=== PATIENT | female | born 1940 | race Caucasian/White ===

== ENCOUNTER 2017-07-13 17:43 | Emergency (ER) | payer MEDICARE, MEDICAID ==
--- OUTSIDE RECORDS SUMMARY | 2017-07-13 18:00 | XMS REPORT ---
:1940 External Reference #:[id number] [facility] Address [address], [address] [place] [address] Phone [phone] Care Team Providers Name Role Phone Leslie Izaguirre, ANDREAS Care Team Information Carpenter Helper Unavailable Frieda Loaiza MD Primary Care Physician Unavailable Payers Type Date Identification Numbers Payment Provider Subscriber Medicare Primary Policy Number: [id number] Medicare Cindy Andrews PayID: [id number] [address] [place] [address] Medicaid Policy Number: [id number] Medicaid Cindy Andrews Group Name: 2 1 [address] PayID: [id number] [place] [address] Problems Date Description Provider Status Onset: 10/22/2013 Chest pain Camilla Issa, Active MSN, ENGINEERING CLERK Onset: 10/22/2013 Dyspnea Camilla Issa, Active MSN, ENGINEERING CLERK Onset: 10/22/2013 Syncope and collapse Camilla Issa, Active MSN, ENGINEERING CLERK Onset: 10/22/2013 Tachycardia Camilla Issa, Active MSN, ENGINEERING CLERK Onset: 10/22/2013 Benign essential hypertension Camilla Issa, Active MSN, ENGINEERING CLERK Onset: 10/22/2013 Hyperlipidemia Camilla Issa, Active MSN, ENGINEERING CLERK Onset: 10/22/2013 Chronic obstructive lung disease Camilla Issa, Active MSN, ENGINEERING CLERK Onset: 10/22/2013 Aneurysm of thoracic aorta Camilla Issa, Active MSN, ENGINEERING CLERK Onset: 10/18/2015 Essential hypertension Camilla Diazraul Issa, Active MSN, ENGINEERING CLERK Onset: 01/31/2016 Closed fracture of head of radius Ramona Holden, ONOFRE Active Onset: 02/10/2016 Closed fracture of distal end of Ramona Holden, ONOFRE Active radius Onset: 12/05/2016 Benign neoplasm of heart Orion Toney M.D., Active FACC Onset: 12/05/2016 Paroxysmal supraventricular Orion Toney M.D., Active tachycardia FACC Onset: 09/28/2014 Hypertensive disorder Active Onset: 09/28/2014 Atrial fibrillation Active Onset: 09/28/2014 Ataxia Active Onset: 09/28/2014 Hypothyroidism Active Family History Date Family Member(s) Problem(s) Comments General Non Contributory Lung cancer in father. Mother in childbirth. Siblings without CAD. Father due to Lung Cancer () Father Lung Cancer Social History Type Date Description Comments Marital Status Lives With Daughter Home Environment Does not have an air conditioner Diet Patient follows no dietary restrictions Occupation Retired Work Status Retired ADL's/IADL's Independent with all ADL's Cigarette Use 2009 Quit ETOH Use Denies alcohol use Smoking Patient is a former smoker quit 2009 Recreational Drug Use Denies Drug Use Daily Caffeine Does Not Consume Caffeine Exercise Type/Frequency Does not exercise Allergies, Adverse Reactions, Alerts Date Description Reaction Status Severity Comments Sulfa Drugs active 09/28/2014 Lexiscan Anaphylaxis active Severe Penicillins active 09/28/2014 Sulfa Antibiotics Hives active 08/02/2010 Cardizem CD active rash 06/28/2010 Regadenoson active severe bronchospasm Medications Medication Date Status Form Strength Qnty SIG Indications Ordering Provider Flecainide 10/24 Active Tablets 50mg 60tab take one s tablet by alessio Toney twice Cristóbal.Matthew, [facility] a day Budesonide 10/09 Active Suspension 0.5mg/2ML 60ml take 1 vial twice MD Tasia daily. rinse mouth after use. Furosemide 04/11 Active Tablets 20mg 90tab 1 by mouth s every day Latoya Toney, FACC Klor-Con M20 10/17 Active Tablets ER 20Meq 60tab 1 by mouth R60.9 Camilla s twice a day Minesh Issa, MSN, ENGINEERING CLERK Azithromycin 08/02 Active Tablets 250mg 12tab take 1 J43.2 s tablet on MD Tasia sunday, sunday, and sunday. Perforomist 03/23 Active Nebulizer 20mcg/2ML 120ml 1 vial J44.9 twice daily MD Tasia Levoxyl Active Tablets 100mcg po qd Unknown Wellbutrin XL Active Tablets ER 300mg 1 po qd Unknown 24HR Klonopin Active Tablets 1mg 1 po tid Unknown Evista Active Tablets 60mg 1 po qd Unknown Singulair Active Tablets 10mg 1 po qd Unknown Aricept Active Tablets 10mg 1 po qd Unknown Paxil Active Tablets 10mg 1 po qd Unknown Primidone Active Tablets 50mg 250 mg tabs Unknown / , plus 3 x 50 mg tabs total of [address] Active Tablets DR 81mg 30tab 1 po qd Unknown / s Tramadol HCL Active Tablets 50mg 1 by mouth Unknown / as needed for pain Prilosec Active Capsules DR 20mg 1 by mouth Unknown /0000 every day Docqlace Active Capsules 100mg take one Unknown capsule by mouth twice a day Spiriva Active Aerosol 2.5mcg/Ac take 1 Unknown Respimat /0000 t puffs once daily. Proair HFA Active Aerosol 108(90Bas [place], /0000 e) Kimmy, mcg/Act M.D. Mirtazapine Active Tablets 15mg 1 tablet by Unknown /0000 mouth at at bedtime Diltiazem HCL Active Caps ER 180mg 90cap 1 by mouth Marlyss B. ER /0000 24HR s every day ONOFRE Tirado Tylenol Active Capsules 325mg 2 tab by Unknown /0000 mouth three times per day as needed Ventolin HFA Active Aerosol 108(90Bas 1-2 puffs Unknown /0000 e) every 6 mcg/Act hours as needed Triamcinolone Active Ointment 0.025% as needed Unknown Acetonide Ondansetron HCL Active Tablets 4mg 1 tab by Unknown /0000 mouth every 8 hours Doxycycline Active Capsules 100mg 1 cap by Unknown Monohydrate /0000 mouth twice a day for 10 days Albuterol Active Nebulizer (2.5mg/3M nebulized Unknown Sulfate / L) 0.083% every 4 hours as needed Metoclopramide Active Tablets 5mg 1 tablet by Unknown HCL /0000 mouth up to twice times a day Rosuvastatin Active Tablets 10mg take 1 by Unknown Calcium / mouth at bedtime Oxycodone HCL 01/30 Hx Tablets 5mg 40tab 1-2 every S52.122A Janes s 4-6 hour as Keisha, - needed pain M.D. 03/15 Furosemide 10/17 Hx Tablets 20mg 30tab 1 by mouth R60.9 Camilla s every day Minesh Issa, 01/30 MSN, [facility] /2015 Levoxyl Hx Tablets 75mcg po qd Unknown / Klor-Con M20 Hx Tablets ER 20Meq 30tab 1 po qd / s Wellbutrin XL Hx Tablets ER 300mg 1 po qd 24HR Perforomist Hx Nebulizer 20mcg/2ML bid Unknown Ipratropium Hx Solution 0.5-2.5(3 q4h prn Unknown Jean/Albuter / )mg/3ML ol Sulfate Aspirin Ec Hx Tablets DR 81mg 1 po qd Unknown / Paxil Hx Tablets 40mg 1 po qd Unknown / Fish Oil Hx Capsules 1000mg po bid Unknown / Multivitamins Hx Tablets 1 po qd Unknown / Vitamin B-12 CR Hx Tablets ER 1000mcg po qd Unknown / Aricept Hx Tablets 10mg 1 po qd Unknown / Primidone Hx Tablets 50mg po qhs Unknown / Vytorin Hx Tablets 10-10mg po qd / Singulair Hx Tablets 10mg 1 po qd Unknown / Evista Hx Tablets 60mg 1 po qd Unknown / Prednisone Hx Tablets 10mg 30tab Take 1 [place] / s tablet once MD Tasia daily Multivitamins Hx Capsules 90cap 1 by mouth Unknown /0000 s every day Theophylline CR Hx Tablets ER 300mg 10tab po qd Unknown / 12HR s Vytorin Hx Tablets 10-20mg 30tab 1 po qd Unknown / s Acidophilus Hx Capsules 1 po qd Unknown /0000 Budesonide Hx Suspension 0.5mg/2ML prn Unknown / Albuterol Hx Nebulizer (2.5mg/3M 75ml prn Unknown Sulfate /0000 L) 0.083% Combivent Hx Aerosol 20-100mcg 1unit 2 puffs 4 Unknown Respimat /0000 /Act s times a day - prn 08/02 Klor-Con M20 Hx Tablets ER 20Meq 1 by mouth R60.9 Unknown /0000 every day - 10/17 Mucinex Hx Tablets ER 400mg as needed Unknown /0000 12HR Symbicort Hx Aerosol 160-4.5mc 2 puff Unknown /0000 g/Act twice a day - 08/02 Spiriva Hx Capsules 18mcg 1 Unknown Handihaler /0000 inhalation - every day 05/09 Flonase Allergy Hx Suspension 50mcg/Act 1puff each Unknown Relief /0000 nostril twice a day Artificial Hx Solution 0.1-0.3% 4x qd Unknown Tears /0000 Clonazepam Hx Tablets 1mg 1 po daily Unknown /0000 - 01/30 Reglan Hx Tablets 5mg 1 tab by Unknown /0000 mouth before meals meals Combivent 00 Hx Aerosol 1 Unknown Respimat /0000 inhalation - four times 05/09 /2015 Zofran Hx Tablets 4mg 1 by mouth Unknown /0000 as needed Symbicort 00 Hx Aerosol 2 puff Unknown /0000 twice a day - 05/09 Fluticasone Hx Suspension 1 spray Unknown Propionate /0000 twice daily Prednisone 00/00 Hx Tablets 5mg 1 po daily Unknown /0000 taper dose - 06/11 Vital Signs Date Vital Result Comment 06/14/2017 BP Systolic Sitting Left Arm 118 mmHg BP Diastolic Sitting Left Arm 78 mmHg Heart Rate 88 /min Respiratory Rate 16 /min Height 63 inches 5'3" Weight 121.00 lb BMI (Body Mass Index) 21.4 kg/m2 BSA (Body Surface Area) 1.56 m2 [place] body weight in kilograms 52 06/11/2017 BP Systolic Sitting Left Arm 122 mmHg BP Diastolic Sitting Left Arm 70 mmHg Heart Rate 73 /min Respiratory Rate 16 /min Height 63 inches 5'3" Weight 121.00 lb BMI (Body Mass Index) 21.4 kg/m2 BSA (Body Surface Area) 1.56 m2 [place] body weight in kilograms 52 O2 % BldC Oximetry 923.5 % 03/13/2017 BP Systolic Sitting Left Arm 105 mmHg BP Diastolic Sitting Left Arm 70 mmHg Respiratory Rate 18 /min Height 63 inches 5'3" Weight 119.00 lb BMI (Body Mass Index) 21.1 kg/m2 BSA (Body Surface Area) 1.55 m2 [place] body weight in kilograms 52 O2 % BldC Oximetry 983. % 12/05/2016 BP Systolic Sitting Left Arm 132 mmHg BP Diastolic Sitting Left Arm 62 mmHg Heart Rate 78 /min Respiratory Rate 24 /min Height 63 inches 5'3" Weight 115.00 lb BMI (Body Mass Index) 20.4 kg/m2 BSA (Body Surface Area) 1.53 m2 [place] body weight in kilograms 52 11/07/2016 BP Systolic Sitting Left Arm 124 mmHg BP Diastolic Sitting Left Arm 68 mmHg Heart Rate 72 /min Respiratory Rate 18 /min Height 63 inches 5'3" Weight 110.00 lb BMI (Body Mass Index) 19.5 kg/m2 BSA (Body Surface Area) 1.50 m2 10/09/2016 BP Systolic Sitting Right Arm 108 mmHg BP Diastolic Sitting Right Arm 64 mmHg Heart Rate 76 /min Respiratory Rate 16 /min Height 63 inches 5'3" Weight 104.00 lb BMI (Body Mass Index) 18.4 kg/m2 BSA (Body Surface Area) 1.46 m2 O2 % BldC Oximetry 95 % 3.5 L 02 07/31/2016 BP Systolic Sitting Left Arm 122 mmHg BP Diastolic Sitting Left Arm 79 mmHg Heart Rate 89 /min Height 63 inches 5'3" Weight 100.00 lb BMI (Body Mass Index) 17.7 kg/m2 BSA (Body Surface Area) 1.44 m2 05/09/2016 BP Systolic Sitting Right Arm 104 mmHg BP Diastolic Sitting Right Arm 64 mmHg Heart Rate 90 /min Respiratory Rate 16 /min Height 63 inches 5'3" Weight 102.00 lb BMI (Body Mass Index) 18.1 kg/m2 BSA (Body Surface Area) 1.45 m2 O2 % BldC Oximetry 90 % 01/28/2016 BP Systolic Sitting Left Arm 102 mmHg BP Diastolic Sitting Left Arm 60 mmHg Heart Rate 98 /min Height 63 inches 5'3" Weight 103.00 lb BMI (Body Mass Index) 18.2 kg/m2 BSA (Body Surface Area) 1.46 m2 [place] body weight in kilograms 52 12/06/2015 BP Systolic Sitting Right Arm 112 mmHg BP Diastolic Sitting Right Arm 62 mmHg Heart Rate 78 /min Respiratory Rate 16 /min Height 63 inches 5'3" Weight 112.00 lb BMI (Body Mass Index) 19.8 kg/m2 BSA (Body Surface Area) 1.51 m2 O2 % BldC Oximetry 95 % 10/25/2015 BP Systolic Sitting Left Arm 128 mmHg BP Diastolic Sitting Left Arm 78 mmHg Heart Rate 100 /min Respiratory Rate 18 /min Height 63 inches 5'3" Weight 116.00 lb BMI (Body Mass Index) 20.5 kg/m2 BSA (Body Surface Area) 1.53 m2 10/18/2015 BP Systolic Sitting Right Arm 130 mmHg BP Diastolic Sitting Right Arm 78 mmHg Heart Rate 92 /min Respiratory Rate 16 /min Height 63 inches 5'3" Weight 117.00 lb BMI (Body Mass Index) 20.7 kg/m2 BSA (Body Surface Area) 1.54 m2 08/02/2015 BP Systolic Sitting Left Arm 124 mmHg BP Diastolic Sitting Left Arm 80 mmHg Heart Rate 121 /min Respiratory Rate 18 /min Height 63 inches 5'3" Weight 131.00 lb BMI (Body Mass Index) 23.2 kg/m2 BSA (Body Surface Area) 1.62 m2 O2 % BldC Oximetry 92 % 3L 03/23/2015 BP Systolic Sitting Right Arm 132 mmHg BP Diastolic Sitting Right Arm 72 mmHg Heart Rate 98 /min Respiratory Rate 18 /min Height 64 inches 5'4" Weight 135.00 lb BMI (Body Mass Index) 23.2 kg/m2 BSA (Body Surface Area) 1.66 m2 O2 % BldC Oximetry 94 % O2 On 3L 10/14/2014 Heart Rate 104 /min Respiratory Rate 16 /min Height 64 inches 5'4" Weight 140.00 lb BMI (Body Mass Index) 24.0 kg/m2 BSA (Body Surface Area) 1.68 m2 11/21/2013 BP Systolic Sitting Left Arm 124 mmHg BP Diastolic Sitting Left Arm 78 mmHg Heart Rate 84 /min Respiratory Rate 18 /min Height 64 inches 5'4" Weight 130.00 lb BMI (Body Mass Index) 22.3 kg/m2 BSA (Body Surface Area) 1.63 m2 10/22/2013 BP Systolic Sitting Right Arm 142 mmHg BP Diastolic Sitting Right Arm 90 mmHg Heart Rate 103 /min Respiratory Rate 20 /min Height 64 inches 5'4" Weight 129.00 lb BMI (Body Mass Index) 22.1 kg/m2 BSA (Body Surface Area) 1.62 m2 08/02/2010 BP Systolic Sitting Right Arm 130 mmHg BP Diastolic Sitting Right Arm 82 mmHg Heart Rate 78 /min Height 64 inches 5'4" Weight 136.00 lb BMI (Body Mass Index) 23.3 kg/m2 Results Test Date Test Result H/L Range Note Anaerobic Culture W/ GR 08/23/2016 Gram Stain FEW WHITE BLOOD 1, 2 Stain <SEE NOTE> Gram Stain RARE YEAST LIKE <SEE NOTE> 1, 3 Anaerobic Culture NO ANAEROBES ISO <SEE NOTE> 1, 4 Routine Culture W/ Gram 08/23/2016 Gram Stain FEW WHITE BLOOD <SEE 1, 5 Stain NOTE> Gram Stain RARE YEAST LIKE <SEE NOTE> 1, 6 Aerobic Culture MIXED SLIM 1, 7 Afb Smear And 08/23/2016 Afb Culture Acid Fast Cultur 1, 8 Culture <SEE NOTE> Fungal Culture With 08/23/2016 Fungal Fluorochrome Stain Test not perform 1, 9 Smear <SEE NOTE> Fungal Culture; Other Sources Fungus (Mycology <SEE NOTE> 1, 10 CBS W/Automated Diff 08/23/2016 White Blood Count 15.0 K/uL High 3.1-10.7 1 Red Blood Count 3.04 M/uL Low 3.90-5.40 1 Hemoglobin 9.6 gm/dL Low 11.6-15.8 1 Hematocrit 31.8 % Low 36.0-46.1 1 Mean Cell Volume 104.6 fl High 80.9-99.0 1 Mean Corpuscular HGB 31.6 pg 25.9-32.7 1 Mean Corpuscular HGB Conc 30.2 g/dL Low 30.8-34.3 1 Platelet Count 489 K/uL High 155-360 1 Red Cell Distri Width SD 54.0 fl High 3-47 1 Red Cell Distri Width %CV 15.0 % High 11.7-14.4 1 Mean Platelet Volume 10.9 fL 8.9-12.4 1 Neut% 81.3 % High 40.4-72.8 1 Lymph % 8.8 % Low 20.0-42.0 1 [place] % 9.0 % 4.3-13.2 1 Eo% 0.7 % 0.0-6.6 1 Bas% 0.2 % 0.0-1.1 1 Neut# 12.17 K/uL High 1.8-7.0 1 Lymph # 1.31 K/uL 1.0-4.0 1 [place] # 1.35 K/uL High 0.3-0.9 1 Eos # 0.10 K/uL 0.0-0.5 1 Baso # 0.03 K/uL 0.0-0.1 1 Comprehensive Metabolic Panel 08/23/2016 Glucose 71 mg/dL Low 74-106 1 BUN 19 mg/dL High 7-18 1 Creatinine 0.5 mg/dL Low 0.6-1.3 1 Glom Filtration Rate, Estimate >60 mL/min >60 1 If >60 mL/min >60 1, 11 BUN/Creat 38.0 ratio 1 Sodium 145 mmol/L 136-145 1 Potassium 3.8 mmol/L 3.5-5.1 1 Chloride 108 mmol/L High 98-107 1 Carbon Dioxide 31 mmol/L 21-32 1 Anion Gap 6 mEq/L Low 8-16 1 Calcium 7.7 mg/dL Low 8.5-10.1 1 Total Protein 5.9 g/dL Low 6.4-8.2 1 Albumin 2.2 g/dL Low 3.4-5.0 1 Globulin 3.7 g/dL 1.9-4.3 1 Alb/Glob 0.6 ratio 1 Bilirubin,Total 0.3 mg/dL 0.2-1.0 1 Sgot/Ast 34 U/L 15-37 1 SGPT/Alt 77 U/L 12-78 1 Alkaline Phosphatase 94 U/L 45-117 1 Laboratory test finding 08/23/2016 C-Reactive Protein,Quant 62.1 mg/L High <3.0 1 Basic Metabolic Panel 08/22/2016 Glucose 82 mg/dL 74-106 1 BUN 16 mg/dL 7-18 1 Creatinine 0.5 mg/dL Low 0.6-1.3 1 Glom Filtration Rate, Estimate >60 mL/min >60 1 If >60 mL/min >60 1, 12 BUN/Creat 32.0 ratio 1 Sodium 144 mmol/L 136-145 1 Potassium 3.9 mmol/L 3.5-5.1 1 Chloride 106 mmol/L 98-107 1 Carbon Dioxide 29 mmol/L 21-32 1 Anion Gap 9 mEq/L 8-16 1 Calcium 7.9 mg/dL Low 8.5-10.1 1 Laboratory test finding 08/22/2016 Phosphorous 3.0 mg/dL 2.5-4.0 1 CBS W/Automated Diff 08/22/2016 White Blood Count 20.8 K/uL High 3.1-10.7 1 Red Blood Count 3.44 M/uL Low 3.90-5.40 1 Hemoglobin 10.9 gm/dL Low 11.6-15.8 1 Hematocrit 36.2 % 36.0-46.1 1 Mean Cell Volume 105.2 fl High 80.9-99.0 1 Mean Corpuscular HGB 31.7 pg 25.9-32.7 1 Mean Corpuscular HGB Conc 30.1 g/dL Low 30.8-34.3 1 Platelet Count 536 K/uL High 155-360 1 Red Cell Distri Width SD 53.3 fl High 3-47 1 Red Cell Distri Width %CV 14.9 % High 11.7-14.4 1 Mean Platelet Volume 11.2 fL 8.9-12.4 1, 13 Neut# 17.52 K/uL High 1.8-7.0 1 Lymph # 1.34 K/uL 1.0-4.0 1 [place] # 1.85 K/uL High 0.3-0.9 1 Eos # 0.09 K/uL 0.0-0.5 1 Baso # 0.04 K/uL 0.0-0.1 1 Slide Review 08/22/2016 Slide Review DIFF ORDERED 1 Differential-WBC Confirm 08/22/2016 Total Cells Counted 100 #CELLS 1 Band% 1 % 0-8 1 Neutrophils% 87 % High 33-73 1, 14 Lymph% 5 % Low 20-42 1 Monocyte% 7 % 0-10 1 Platelet Estimate SLIGHT INCREASE 1 Anisocytosis 0-1+ 1 Macrocytosis 1+ 1 Toxic Granulation 0-1+ 1 Laboratory test finding 08/15/2016 Phosphorous 1.3 mg/dL Low 2.5-4.0 1, 15 Basic Metabolic Panel 08/15/2016 Glucose 155 mg/dL High 74-106 1 BUN 14 mg/dL 7-18 1 Creatinine 0.5 mg/dL Low 0.6-1.3 1 Glom Filtration Rate, Estimate >60 mL/min >60 1 If >60 mL/min >60 1, 16 BUN/Creat 28.0 ratio 1 Sodium 147 mmol/L High 136-145 1 Potassium 2.7 mmol/L Low 3.5-5.1 1 Chloride 102 mmol/L 98-107 1 Carbon Dioxide 40 mmol/L High 21-32 1 Anion Gap 5 mEq/L Low 8-16 1 Calcium 8.6 mg/dL 8.5-10.1 1 CBC 08/15/2016 White Blood Count 15.3 K/uL High 3.1-10.7 1 Red Blood Count 3.11 M/uL Low 3.90-5.40 1 Hemoglobin 9.7 gm/dL Low 11.6-15.8 1 Hematocrit 32.8 % Low 36.0-46.1 1 Mean Cell Volume 105.5 fl High 80.9-99.0 1 Mean Corpuscular HGB 31.2 pg 25.9-32.7 1 Mean Corpuscular HGB Conc 29.6 g/dL Low 30.8-34.3 1 Platelet Count 427 K/uL High 155-360 1 Red Cell Distri Width %CV 13.2 % 11.7-14.4 1 Mean Platelet Volume 10.4 fL 8.9-12.4 1 Aot Request 08/15/2016 Aot Request Test(s) added 1, 17 Tests to be added: Serum phosphorus 1, 18 Laboratory test finding 08/14/2016 Act Partial Thrombo 33.0 seconds 23.4- 35.0 1 Time Protime 08/14/2016 Protime 14.9 seconds High 12.0-14.4 1 Inr 1.2 High 0.9-1.1 1, 19 Laboratory test finding 08/12/2016 Troponin-I 1.090 ng/mL High 1, 20 Basic Metabolic Panel 02/03/2016 Glucose 91 mg/dL 74-106 BUN 13 mg/dL 7-18 Creatinine 0.6 mg/dL 0.6-1.3 Glom Filtration Rate, Estimate >60 mL/min >60 If >60 mL/min >60 21 BUN/Creat 21.6 ratio Sodium 142 mmol/L 136-145 Potassium 4.2 mmol/L 3.5-5.1 Chloride 105 mmol/L 98-107 Carbon Dioxide 33 mmol/L High 21-32 Anion Gap 4 mEq/L Low 8-16 Calcium 8.0 mg/dL Low 8.5-10.1 Comprehensive Metabolic Panel 10/20/2015 Glucose 53 mg/dL Low 74-106 BUN 12 mg/dL 7-18 Creatinine 0.7 mg/dL 0.6-1.3 Glom Filtration Rate, Estimate >60 mL/min >60 If >60 mL/min >60 22 BUN/Creat 17.1 ratio Sodium 142 mmol/L 136-145 Potassium 3.2 mmol/L Low 3.5-5.1 Chloride 103 mmol/L 98-107 Carbon Dioxide 37 mmol/L High 21-32 Anion Gap 2 mEq/L Low 8-16 Calcium 8.1 mg/dL Low 8.5-10.1 Total Protein 7.1 g/dL 6.4-8.2 Albumin 3.6 g/dL 3.4-5.0 Globulin 3.5 g/dL 1.9-4.3 Alb/Glob 1.0 ratio Bilirubin,Total 0.2 mg/dL 0.2-1.0 Sgot/Ast 27 U/L 15-37 SGPT/Alt 28 U/L 12-78 Alkaline Phosphatase 95 U/L 45-117 Laboratory test finding 10/20/2015 Magnesium 2.0 mg/dL 1.8-2.4 Laboratory test finding 09/28/2014 Aot Request Test(s) added 23 Laboratory test finding 09/28/2014 Aot Request See Note 24 Laboratory test finding 09/28/2014 Sedimentation Rate 9 mm/hr 0-30 Laboratory test finding 09/27/2014 Troponin-I 0.188 ng/mL 25 Thyroid Stim Hormone 7.77 uIU/mL High 0.36-3.74 C-Reactive Protein,Quant 7.9 mg/L <3.0 1 MA=ICIRCLE 2 FEW WHITE BLOOD CELLS 3 RARE YEAST LIKE ORGANISMS 4 NO ANAEROBES ISOLATED 5 FEW WHITE BLOOD CELLS 6 RARE YEAST LIKE ORGANISMS 7 SPECIMEN IS A MIX OF ORGANISMS CONSISTENT WITH CONTAMINATION DURING COLLECTION. SUGGEST REPEAT SPECIMEN IF CLINICALLY INDICATED. 8 Acid Fast Culture Negative: No acid fast bacilli isolated after 6 weeks. Performed at: [address] [id number] [employer]otive Professional: Bibi Baldwin MD, Phone: [phone] Test not performed REFERENCE LAB REEQUEST PROBLEM 10 Fungus (Mycology) Culture Fungus (Mycology) Culture Preliminary report 1 Result 1 Teresita albicans Result 2 Teresita glabrata The SUJIT test was not requested on this specimen. The [facility] requires fungal smears be performed on all specimens cultured for fungiFungus (Mycology) Culture Fungus (Mycology) Culture Performed at: [address] [id number] [employer]otive Professional: Bibi Baldwin MD, Phone: [phone] . 11 Note: Persistent reduction for 3 months or more in an eGFR <60 mL/min/1.73 m2 defines CKD. Patients with eGFR values >/=60 mL/min/1.73 m2 may also have CKD if evidence of persistent proteinuria is present. The original MDRD equation for estimated GFR is not valid for patients less than 18 years of age. Additional information may be found at [email or web address]. 12 Note: Persistent reduction for 3 months or more in an eGFR <60 mL/min/1.73 m2 defines CKD. Patients with eGFR values >/=60 mL/min/1.73 m2 may also have CKD if evidence of persistent proteinuria is present. The original MDRD equation for estimated GFR is not valid for patients less than 18 years of age. Additional information may be found at [email or web address]. 13 08/22/16 1032: NEUT% previously reported as: 84.1 H % Amended result called to: [] - 08/22/16 at 1032 08/22/16 1032: LYMPH % previously reported as: 6.4 L % Amended result called to: [] - 08/22/16 at 1032 08/22/16 1032: MONO % previously reported as: 8.9 % Amended result called to: [] - 08/22/16 at 1032 08/22/16 1032: EO% previously reported as: 0.4 % Amended result called to: [] - 08/22/16 at 1032 08/22/16 1032: BAS% previously reported as: 0.2 % Amended result called to: [] - 08/22/16 at 1032 14 VACUOLATED POLY'S SEEN ON SMEAR 15 CHECKED CALLED K, CO2 TO RANDELL Matias AT 0802 08/15/16 16 Note: Persistent reduction for 3 months or more in an eGFR <60 mL/min/1.73 m2 defines CKD. Patients with eGFR values >/=60 mL/min/1.73 m2 may also have CKD if evidence of persistent proteinuria is present. The original MDRD equation for estimated GFR is not valid for patients less than 18 years of age. Additional information may be found at [email or web address]. 17 Tests: Serum phosphorus Instructions: 18 Serum phosphorus 19 THERAPEUTIC INR RANGE: 2.0 - 3.0 DVT, Pulmonary embolus, prophylaxis against venous thrombosis or systemic embolization in high risk patients. 2.5 - 3.5 Mechanical heart valves 20 0.0 - 0.045 ng/mL: Normal 0.046 - 0.5 ng/mL: Suggestive 0.6 - 1.5 ng/mL: Consistent 21 Note: Persistent reduction for 3 months or more in an eGFR <60 mL/min/1.73 m2 defines CKD. Patients with eGFR values >/=60 mL/min/1.73 m2 may also have CKD if evidence of persistent proteinuria is present. The original MDRD equation for estimated GFR is not valid for patients less than 18 years of age. Additional information may be found at [email or web address]. 22 Note: Persistent reduction for 3 months or more in an eGFR <60 mL/min/1.73 m2 defines CKD. Patients with eGFR values >/=60 mL/min/1.73 m2 may also have CKD if evidence of persistent proteinuria is present. The original MDRD equation for estimated GFR is not valid for patients less than 18 years of age. Additional information may be found at [email or web address]. 23 Tests: TSH Instructions: 24 Unable to add tests Tests: ESR and CRP Instructions: 25 0.0 - 0.045 ng/mL: Normal 0.046 - 0.5 ng/mL: Suggestive 0.6 - 1.5 ng/mL: Consistent Procedures Date CPT Code Description Status 06/14/2017 37521 EKG-Tracing And Report Completed 05/22/2017 53789 Echocardiogram Complete Completed 12/26/2016 Colonoscopy Completed 11/07/2016 84390 EKG-Tracing And Report Completed 08/11/2016 33895 EKG Interpretation And Report Only Completed 08/10/2016 17463 EKG Interpretation And Report Only Completed 08/09/2016 36712 Echocardiogram Complete Completed 08/03/2016 66404 Echocardiogram Complete Completed 05/24/2016 68602 Bronchospasm Provocation Evaluation Multi Spirometric Completed Determinati 05/24/2016 05837 Spirometry Completed 04/12/2016 97632 Radiology, Wrist Two Views Completed 03/15/2016 28044 Radiology, Wrist Two Views Completed 02/23/2016 03573 Radiology, Wrist Two Views Completed 02/23/2016 19813 Radiology, Wrist Two Views Completed 02/10/2016 69474 Application short arm splint forearm to wrist static Completed 02/10/2016 67064 Radiology, Wrist Two Views Completed 02/10/2016 94186 Radiology, Wrist Two Views Completed 02/03/2016 46563 Fluoroscopy Up To 1 HR Physician Time Completed 02/03/2016 73457 Distal radius fracture percutaneous fixation Completed 01/31/2016 91815 Radiology, Shoulder: Two Views (Sso) Completed 10/18/2015 14405 EKG-Tracing And Report Completed 03/31/2015 76864 Bronchospasm Provocation Evaluation Multi Spirometric Completed Determinati 03/31/2015 52755 Bronchodilation Responsiveness Spirometry Pre/Post Completed Bronchodil Adm 03/31/2015 92756 Spirometry Completed 09/27/2014 33023 EKG Interpretation And Report Only Completed 09/26/2014 29780 Echocardiogram Complete Completed 11/14/2013 56079 Stress Test Physician Super Only Completed 11/14/2013 99689 Myocardial Imaging Tomographic Multiple Study At Rest Completed Or Stress 11/14/2013 83870 Stress Test Interpre And Report Only Completed 11/14/2013 28786 Stress Test Physician Super Only Completed 11/11/2013 31213 Echocardiogram Complete Completed 10/22/2013 78601 EKG-Tracing And Report Completed 06/10/2012 30413 Echocardiogram Complete Completed 09/22/2011 17056 Echocardiogram Complete Completed 06/22/2011 94894 Stress Test Interpre And Report Only Completed 06/22/2011 55368 Stress Test Interpre And Report Only Completed 06/22/2011 69914 Stress Test Physician Super Only Completed 06/22/2011 13083 Myocardial Imaging Tomographic Multiple Study At Rest Completed Or Stress 05/13/2011 13126 Echocardiogram Complete Completed 08/02/2010 98865 EKG-Tracing And Report Completed 06/23/2010 63924 Stress Test Interpre And Report Only Completed 06/23/2010 71506 Stress Test Physician Super Only Completed 05/26/2009 46869 Stress Test Physician Super Only Completed 05/26/2009 83539 EKG Interpretation And Report Only Completed 05/26/2009 61202 Ejection Fraction Completed 05/26/2009 81372 Myocardial Wall Motion Completed 05/26/2009 51353 Cardiolite Stress/Rest Spect Completed 05/26/2009 59435 Echocardiogram Complete Completed 05/26/2009 59488 Stress Test Interpre And Report Only Completed 10/24/2007 17704 EKG Interpretation And Report Only Completed 09/09/2007 42107 Colonoscopy With Polypectomy Completed Encounters Type Date Location Provider CPT E/M Dx Office Visit 06/14/2017 1:30p Cardiology Office [place] [address] I71.2 D15.1 J44.9 I47.1 I10 Office Visit 03/13/2017 2:45p [place] [address] J44.9 R29.6 R04.0 F17.211 Office Visit 12/05/2016 1:00p Cardiology Office Orion Toney, 55611 D15.1 Latoya, [facility] I47.1 R06.02 I71.2 Office Visit 11/07/2016 1:10p Cardiology Office [place] [address]018 I47.1 R06.02 R94.30 I71.2 I10 Office Visit 10/09/2016 1:45[place] [address] J44.1 R91.1 F17.211 Office Visit 08/22/2016 9:35a Physical Medicine [place]Sg, [address] J18.9 & Infectious M.D. 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, ENGINEERING CLERK I10 R06.02 Office Visit 05/09/2016 1:45[place] [address] J43.2 F17.211 J30.89 Office Visit 01/31/2016 11:00a Orthopaedic Office [place] 30541 M25.512 S52.122A Office Visit 01/28/2016 11:20a Cardiology Office Orion Toney, 38737 I71.2 MPatricia, [facility] R06.02 I10 Office Visit 12/06/2015 2:30[place] [address] J43.2 F17.211 J30.89 R91.1 Office Visit 10/25/2015 2:30p Cardiology Office Camilla Issa, 70613 R60.9 MSN, [facility] I71.2 R06.02 E78.5 I10 Office Visit 10/18/2015 1:20p Cardiology Office Camilla Issa, 16699 R60.9 MSN, [facility] I71.2 R06.02 E78.5 I10 Office Visit 08/02/2015 3:30[place] [address] J43.2 F17.211 Office Visit 04/15/2015 11:31a [place] Soham Melendrez M.D. 83937 J44.1 [facility] Office Visit 03/23/2015 3:00[place] [address] 496 244.9 793.11 Office Visit 01/25/2015 4:05p [facility] Mercedez Giordano M.D. 80666 491.21 [facility] Center 466.0 Office Visit 10/14/2014 1:00p Cardiology Office Orion Toney, 57921 786.50 MPatricia, FAC 786.05 401.1 272.4 Office Visit 09/28/2014 1:09p [place] [address] 413.9 427.0 Office Visit 09/26/2014 3:08p [facility] Mercedez Giordano M.D. 30393 436 [facility] 427.31 Office Visit 09/03/2014 3:56p [facility] Marianne Baeza M.D. 84913 491.21 Medical Center Office Visit 07/05/2014 1:55p [facility] [place] [address] 491.21 Medical Center Office Visit 01/02/2014 9:38a [facility] Emmy Mcgarry M.D. 62378 491.21 [facility] 401.1 272.4 Office Visit 12/22/2013 11:35a [facility] Antonio Valle, 55003 486 [facility] DO Office Visit 11/21/2013 11:00a Cardiology Office Orion Toney, 97830 786.05 M.DJorge, FAC 785.0 401.1 Office Visit 10/22/2013 10:00a Cardiology Office Camilla Minesh Issa, 53093 786.50 MSN, [facility] 786.05 780.2 785.0 401.1 272.4 496 441.2 Office Visit 09/23/2013 3:45p [place], [address] 786.05 PhD Office Visit 09/22/2013 11:59a [facility] Irina Escobedo M.D. 34664 491.21 Medical Center Office Visit 05/12/2013 4:23p [facility] Emmy Mcgarry 47087 491.21 [facility] M.Matthew 786.50 Office Visit 06/23/2011 4:31p [place] [address] 786.50 Office Visit 08/02/2010 1:00p Cardiology Office Orion Toney, 36777 785.0 MPatricia, FACC 401.1 786.59 786.05 Office Visit 08/29/2007 9:50a ARPITA Garces M.D. 35101 564.00 Plan of Care Future Appointment(s):12/11/2017 1:45 pm - Lowell Dozier MD at [facility]/30/ 2017 - Corona Tirado, PAI71.2 Thoracic aortic aneurysm, without ruptureComments:Monitor.D15.1 Benign neoplasm of heartComments:No need for intervention at this time.J44.9 Chronic obstructive pulmonary disease, unspecifiedComments:Followed by Dr. Dozier.I47.1 Supraventricular tachycardiaComments:Monitor.I10 Essential (primary) hypertensionComments:No changes.AllFollow up:6 months
--- NOTE | 2017-07-13 18:58 | UC ---
Upper Extremity HPI - HPI Summary HPI Summary: 77 year old female presents with complains of left shoulder pain after a fall. - History of Current Complaint Chief Complaint: UCUpperExtremity Stated Complaint: LEFT SHOULDER/ARM PAIN Time Seen by Provider: 07/13/17 18:55 Hx Obtained From: Patient Onset/Duration: Sudden Onset Severity Initially: Moderate Severity Currently: Moderate Pain Scale Used: 0-10 Numeric - 7 Character: Sharp Aggravating Factor(s): Movement, Lifting, Flexion, Extension Alleviating Factor(s): Nothing Associated Signs And Symptoms: Positive: Swelling - Allergies/Home Medications Allergies/Adverse Reactions: Allergies Allergy/AdvReac Type Severity Reaction Status Date / Time Penicillins Allergy Hives Verified 07/13/17 18:32 Sulfa Antibiotics Allergy Hives Verified 07/13/17 18:32 PMH/Surg Hx/FS Hx/Imm Hx Previously Healthy: Yes - Surgical History Surgical History: Yes Surgery Procedure, Year, and Place: HYSTERECTOMY. BUT NONE PERTAINING TO THE ABDOMEN. - Family History Known Family History: Positive: None - Social History Alcohol Use: None Substance Use Type: None Smoking Status (MU): Former Smoker Amount Used/How Often: 1 pack per day Have You Smoked in the Last Year: No When Did the Patient Quit Smoking/Using Tobacco: 2010 - Immunization History Most Recent Influenza Vaccination: 2017 Review of Systems Constitutional: Negative Skin: Negative Eyes: Negative ENT: Negative Respiratory: Negative Cardiovascular: Negative Gastrointestinal: Negative Genitourinary: Negative Motor: Negative Neurovascular: Negative Musculoskeletal: Other: - left shoulder pain Neurological: Negative Psychological: Negative All Other Systems Reviewed And Are Negative: Yes Physical Exam Triage Information Reviewed: Yes Vital Signs Reviewed: Yes Eye Exam: Normal ENT Exam: Normal Dental Exam: Normal Neck exam: Normal Neck: Positive: 1 Respiratory Exam: Normal Cardiovascular Exam: Normal Abdominal Exam: Normal Musculoskeletal: Positive: Other: - left shoulder pain Neurological Exam: Normal Psychological Exam: Normal Skin Exam: Normal Upper Extremity Course/Dx - Differential Dx/Diagnosis Provider Diagnoses: left shoudler pain. left humeral neck fx Discharge - Discharge Plan Condition: Stable Disposition: HOME Prescriptions: Acetaminop/Codeine 30 MG TAB* [Tylenol/Codeine 30 MG TAB*] 1 tab PO Q6H PRN #20 tab MDD 4 PRN Reason: Pain Methocarbamol TAB* [Robaxin 500 MG TAB*] 500 mg PO TID PRN #30 tab PRN Reason: Spasms - Muscle Patient Education Materials: Shoulder Pain (ED), Proximal Humerus Fracture (ED) Referrals: MITESH Lawler [Primary Care Provider] - Janes Ash MD [Medical Doctor] -
--- NOTE | 2017-07-13 19:46 | RAD ---
INDICATION: Left shoulder injury. TECHNIQUE: 4 views of the left shoulder were obtained. FINDINGS: There is an impacted fracture of the surgical neck of the humerus. The fracture fragments are slightly angulated. No other fractures are seen. Joint spaces appear maintained. IMPRESSION: IMPACTED FRACTURE OF THE SURGICAL NECK OF THE HUMERUS.
[2017-07-13] MEDS ORDERED: Acetaminop/Codeine 30 MG TAB* 1 TAB (300 MG/30 MG) PO ONE (19:59)
[2017-07-13 20:28] VITALS: BP 151/81
== END 2017-07-13 20:30 | disposition home or self-care (01) ==
LOC: UCCORT 17:43
DX: S42.212A Unspecified displaced fracture of surgical neck of left humerus, initial encounter for closed fracture (principal); Z88.2 Allergy status to sulfonamides; Z88.0 Allergy status to penicillin; Z87.891 Personal history of nicotine dependence; W19.XXXA Unspecified fall, initial encounter; Y92.9 Unspecified place or not applicable
CPT/HCPCS: 99213; A9270-GY; G0463